=== PATIENT | male | born 1935 | race Hispanic/Latino ===

== ENCOUNTER 2018-06-26 11:02 | Emergency (ER) | payer SELFPAY ==
--- NOTE | 2018-06-26 12:35 | RAD REPORT ---
EXAM DESCRIPTION: RAD - Hand Right 3 View - 06/26/2018 12:16 pm CLINICAL HISTORY: Right hand pain FINDINGS: No fracture or dislocation is seen. Lateral subluxation of first distal phalanx. 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 Mild osteoarthritis involves DIP and PIP joints. Sub chondral cyst is present in the base of the first metacarpal with mild osteoarthritis The bones are osteoporotic
--- NOTE | 2018-06-26 12:49 | RAD REPORT ---
EXAM DESCRIPTION: US - UPPER EXTREMITY VENOUS UNILATE - 06/26/2018 12:38 pm CLINICAL HISTORY: Right arm swelling and pain COMPARISON: None FINDINGS: The right internal jugular, right subclavian, right cephalic, right axillary, right brach ial, right basilic, right ulnar and right radial veins are generally compressible and demonstrate au gmentation. Doppler demonstrates good flow. IMPRESSION: No evidence of thrombus within the veins of the right upper extremity
[2018-06-26 13:20] LABS: Absolute Lymphocytes (CBC) 1.7 K/uL (0.7-4.9); Absolute Monocytes 0.9 K/uL (0.1-1.3); Absolute Neutrophil 5.2 K/uL (1.8-8.0); Basophils % 0.8 % (0-1.3); Eosinophils % 3.4 % (0-4.4); Hematocrit 43.9 % (39.6-49.0); Lymphocytes % 20.7 % (15.3-44.8); MPV 8.1 fL (7.6-11.3); Monocytes % 10.7 % (3.3-12.3); RBC Red Blood Cell Count 4.96 M/uL (4.33-5.43)
[2018-06-26 13:24] LABS: ALT/SGPT 23 U/L (12-78); AST/SGOT 19 U/L (15-37); Albumin 3.7 g/dL (3.4-5.0); Alkaline Phosphatase 84 U/L (45-117); BUN Blood Urea Nitrogen 13 mg/dL (7-18); Bicarbonate 30 mmol/L (21-32); Bilirubin Total 0.6 mg/dL (0.2-1.0); Glucose Level 91 mg/dL (74-106); Protein, Total 7.1 g/dL (6.4-8.2); Sodium Level 136 mmol/L (136-145)
--- NOTE | 2018-06-26 13:57 | EDPHYS ---
Physician Documentation [facility] Name: Rajesh Pascual Age: 83 yrs Sex: Male : 1935 Arrival Date: 06/26/2018 Time: 11:07 Bed 2 Private MD: ED Physician Oswaldo Cuello HPI: 06/26 12:05 This 83 yrs old Male presents to ER via Ambulatory with complaints of Hand pm1 Swelling. 12:05 The patient or guardian reports pain. The complaints affect the heel of right hand. pm1 Context: The problem was sustained at home. Onset: The symptoms/episode began/occurred 3 day(s) ago. Modifying factors: The symptoms are alleviated by massage yesterday from a masseuse . Associated signs and symptoms: Pertinent negatives: cyanosis distally, decreased sensation distally, fever, numbness distally, tingling distally. Severity of symptoms: in the emergency department the symptoms have improved. The patient has not experienced similar symptoms in the past. The patient has not recently seen a physician. Patient with right hand pain and dorsal aspect of right forearm onset three days ago. Patient went to a masseuse yesterday and it improved his pain and swelling to right forearm and right hand. No chest pain, fever or shortness of breath . Historical: - Allergies: 11:24 No Known Allergies; sv - Home Meds: 11:24 rosuvastatin 20 mg oral tab 1 tab nightly [Active]; sv - PMHx: 11:24 High Cholesterol; sv - PSHx: 11:24 Hernia repair; retinal; prostatectomy; sv - Immunization history:: Adult Immunizations up to date. - Social history:: Smoking status: Patient/guardian denies using tobacco. - Ebola Screening: : No symptoms or risks identified at this time. ROS: 13:00 Constitutional: Negative for fever, chills, and weight loss, Eyes: Negative for injury, pm1 pain, redness, and discharge, ENT: Negative for injury, pain, and discharge, Neck: Negative for injury, pain, and swelling, Cardiovascular: Negative for chest pain, palpitations, and edema, Respiratory: Negative for shortness of breath, cough, wheezing, and pleuritic chest pain, Abdomen/GI: Negative for abdominal pain, nausea, vomiting, diarrhea, and constipation, Back: Negative for injury and pain, : Negative for injury, bleeding, discharge, and swelling. 13:00 Skin: Negative for injury, rash, and discoloration, Neuro: Negative for headache, weakness, numbness, tingling, and seizure. 13:00 MS/extremity: Positive for pain, swelling, of the heel of right hand and dorsal aspect of right forearm. Exam: 13:00 Constitutional: This is a well developed, well nourished patient who is awake, alert, pm1 and in no acute distress. Head/Face: Normocephalic, atraumatic. Eyes: Pupils equal round and reactive to light, extra-ocular motions intact. Lids and lashes normal. Conjunctiva and sclera are non-icteric and not injected. Cornea within normal limits. Periorbital areas with no swelling, redness, or edema. ENT: Nares patent. No nasal discharge, no septal abnormalities noted. Tympanic membranes are normal and external auditory canals are clear. Oropharynx with no redness, swelling, or masses, exudates, or evidence of obstruction, uvula midline. Mucous membranes moist. Neck: Trachea midline, no thyromegaly or masses palpated, and no cervical lymphadenopathy. Supple, full range of motion without nuchal rigidity, or vertebral point tenderness. No Meningismus. Chest/axilla: Normal chest wall appearance and motion. Nontender with no deformity. No lesions are appreciated. Cardiovascular: Regular rate and rhythm with a normal S1 and S2. No gallops, murmurs, or rubs. Normal PMI, no JVD. No pulse deficits. Respiratory: Lungs have equal breath sounds bilaterally, clear to auscultation and percussion. No rales, rhonchi or wheezes noted. No increased work of breathing, no retractions or nasal flaring. Abdomen/GI: Soft, non-tender, with normal bowel sounds. No distension or tympany. No guarding or rebound. No evidence of tenderness throughout. Back: No spinal tenderness. No costovertebral tenderness. Full range of motion. Skin: Warm, dry with normal turgor. Normal color with no rashes, no lesions, and no evidence of cellulitis. 13:00 Musculoskeletal/extremity: Extremities: grossly normal except: noted in the lateral aspect of heel of right hand: trace swelling, ROM: intact in all extremities, Circulation is intact in all extremities. Sensation intact. 13:00 Neuro: Orientation: is normal, Motor: moves all fours, strength is normal, strength is 5/5 in all extremities. Vital Signs: 11:24 BP 134 / 59; Pulse 66; Resp 18; Temp 97.8; Pulse Ox 97% ; Weight 70 kg; Height 5 ft. 4 sv in. (162.56 cm); 13:00 BP 150 / 67; Pulse 64; Resp 16; Pulse Ox 99% on R/A; hb 14:00 BP 152 / 64; Pulse 64; Resp 16; Pulse Ox 100% on R/A; hb 11:24 Body Mass Index 26.49 (70.00 kg, 162.56 cm) sv MDM: 11:44 Patient medically screened. pm1 12:36 Data reviewed: vital signs. Data interpreted: Pulse oximetry: on room air is 97 %. pm1 Interpretation: normal. 13:54 Counseling: I had a detailed discussion with the patient and/or guardian regarding: the pm1 historical points, exam findings, and any diagnostic results supporting the discharge/admit diagnosis, lab results, radiology results, the need for outpatient follow up, to return to the emergency department if symptoms worsen or persist or if there are any questions or concerns that arise at home. 06/26 11:52 Order name: CBC with Diff; Complete Time: 13:53 pm1 06/26 11:52 Order name: CMP; Complete Time: 13:53 pm1 06/26 11:51 Order name: Hand Right 3 View XRAY; Complete Time: 12:36 pm1 06/26 11:54 Order name: UPPER EXTREMITY VENOUS UNILATE; Complete Time: 12:50 EDMS Administered Medications: 14:29 Drug: TORadol 15 mg Route: IVP; Site: right antecubital; hb 14:55 Follow up: Response: No adverse reaction; Pain is decreased hb Disposition: 06/27 07:24 Co-signature as Attending Physician, Oswaldo Cuello MD I agree with the assessment and wa plan of care. PA/[employer]ER [employer]APPER's history reviewed, patient interviewed, and examined. Disposition: 06/26/18 13:56 Discharged to Home. Impression: Osteoarthritis right hand. - Condition is Stable. - Discharge Instructions: Arthritis. - Prescriptions for Tramadol 50 mg Oral Tablet - take 1 tablet by ORAL route every 8 hours as needed; 12 tablet. - Medication Reconciliation Form, Thank You Letter, Antibiotic Education, Prescription Opioid Use form. - Follow up: Emergency Department; When: As needed; Reason: Worsening of condition. Follow up: Private Physician; When: 2 - 3 days; Reason: Recheck today's complaints, Continuance of care, Re-evaluation by your physician. - Problem is new. - Symptoms have improved. Signatures: Dispatcher [employer] [facility] Marisela Escobar RN RN Karie Boswell RN RN Samuel Camp NP P[employer]PER pm1 Delmis Padgett RN RN KhushbooOswaldo MD MD ct Corrections: (The following items were deleted from the chart) 06/26 11:54 11:52 Extremity Venous [email or web address] ordered. [facility] 14:57 13:56 06/26/2018 13:56 Discharged to Home. Impression: Osteoarthritis right hand. hb Condition is Stable. Forms are Medication Reconciliation Form, Thank You Letter, Antibiotic Education, Prescription Opioid Use. Follow up: Emergency Department; When: As needed; Reason: Worsening of condition. Follow up: Private Physician; When: 2 - 3 days; Reason: Recheck today's complaints, Continuance of care, Re-evaluation by your physician. Problem is new. Symptoms have improved. pm1
--- NOTE | 2018-06-26 13:57 | ER ---
Nurse's Notes [facility] Name: Rajesh Pascual Age: 83 yrs Sex: Male : 1935 Arrival Date: 06/26/2018 Time: 11:07 Bed 2 Private MD: Diagnosis: Osteoarthritis right hand Presentation: 06/26 11:22 Presenting complaint: Child states: right thumb swelling started 4 days ago and then sv the swelling has increased to the right hand and up the arm. c/o right neck pain. Denies fever/chills. Transition of care: patient was not received from another setting of care. Onset of symptoms was June 22, 2018. Care prior to arrival: None. 11:22 Method Of Arrival: Ambulatory sv 11:22 Acuity: TENA 3 sv 11:30 Risk Assessment: Do you want to hurt yourself or someone else? Patient reports no ph desire to harm self or others. Initial Sepsis Screen: Does the patient meet any 2 criteria? No. Patient's initial sepsis screen is negative. Does the patient have a suspected source of infection? No. Patient's initial sepsis screen is negative. Triage Assessment: 11:22 General: Appears in no apparent distress. uncomfortable, well developed, Behavior is sv calm, cooperative, appropriate for age. Pain: Complains of pain in right arm, right posterior aspect of neck, right lateral aspect of neck and right anterior aspect of neck. Neuro: Level of Consciousness is awake, alert, obeys commands, Oriented to person, place, time, situation, Gait is steady, with his cane. Respiratory: Respiratory effort is even, unlabored, Respiratory pattern is regular, symmetrical. Musculoskeletal: Swelling present in right hand. Historical: - Allergies: 11:24 No Known Allergies; sv - Home Meds: 11:24 rosuvastatin 20 mg oral tab 1 tab nightly [Active]; sv - PMHx: 11:24 High Cholesterol; sv - PSHx: 11:24 Hernia repair; retinal; prostatectomy; sv - Immunization history:: Adult Immunizations up to date. - Social history:: Smoking status: Patient/guardian denies using tobacco. - Ebola Screening: : No symptoms or risks identified at this time. Screenin:10 Abuse screen: Denies threats or abuse. Denies injuries from another. Nutritional hb screening: No deficits noted. Tuberculosis screening: No symptoms or risk factors identified. Fall Risk None identified. Assessment: 11:30 General: Appears in no apparent distress. Behavior is calm, cooperative. Pain: Pain hb currently is 5 out of 10 on a pain scale. Neuro: Level of Consciousness is awake, alert, obeys commands, Oriented to person, place, time, situation. Cardiovascular: Capillary refill < 3 seconds Patient's skin is warm and dry. Respiratory: Airway is patent Respiratory effort is even, unlabored, Respiratory pattern is regular, symmetrical, Breath sounds are clear bilaterally. GI: No signs and/or symptoms were reported involving the gastrointestinal system. : No signs and/or symptoms were reported regarding the genitourinary system. EENT: No signs and/or symptoms were reported regarding the EENT system. Derm: Skin is intact, is healthy with good turgor. Musculoskeletal: right hand swelling. 12:30 Reassessment: Patient appears in no apparent distress at this time. No changes from hb previously documented assessment. Patient and/or family updated on plan of care and expected duration. Pain level reassessed. Patient is alert, oriented x 3, equal unlabored respirations, skin warm/dry/pink. 13:30 Reassessment: Patient appears in no apparent distress at this time. No changes from hb previously documented assessment. Patient and/or family updated on plan of care and expected duration. Pain level reassessed. Patient is alert, oriented x 3, equal unlabored respirations, skin warm/dry/pink. 14:30 Reassessment: Patient appears in no apparent distress at this time. No changes from hb previously documented assessment. Patient and/or family updated on plan of care and expected duration. Pain level reassessed. Patient is alert, oriented x 3, equal unlabored respirations, skin warm/dry/pink. Vital Signs: 11:24 BP 134 / 59; Pulse 66; Resp 18; Temp 97.8; Pulse Ox 97% ; Weight 70 kg; Height 5 ft. 4 sv in. (162.56 cm); 13:00 BP 150 / 67; Pulse 64; Resp 16; Pulse Ox 99% on R/A; hb 14:00 BP 152 / 64; Pulse 64; Resp 16; Pulse Ox 100% on R/A; hb 11:24 Body Mass Index 26.49 (70.00 kg, 162.56 cm) sv ED Course: 11:07 Patient arrived in ED. tw3 11:23 Triage completed. sv 11:25 Arm band placed on. sv 11:44 Samuel Camp NP is PHCP. pm1 11:44 Oswaldo Cuello MD is Attending Physician. pm1 12:14 X-ray completed. Portable x-ray completed in exam room. Patient tolerated procedure mh1 well. 12:17 Hand Right 3 View XRAY In Process Unspecified. EDMS 12:37 UPPER EXTREMITY VENOUS UNILATE In Process Unspecified. EDMS 12:37 Karie Boswell, RN is Primary Nurse. ph 12:54 Missed attempt(s): 20 gauge in right forearm. Bleeding controlled, band aid applied, pc1 catheter tip intact. 12:54 Inserted saline lock: 22 gauge in right antecubital area, using aseptic technique. pc1 13:00 Patient has correct armband on for positive identification. Bed in low position. Call hb light in reach. Side rails up X 1. 14:56 No provider procedures requiring assistance completed. IV discontinued, intact, hb bleeding controlled, No redness/swelling at site. Pressure dressing applied. Administered Medications: 14:29 Drug: TORadol 15 mg Route: IVP; Site: right antecubital; hb 14:55 Follow up: Response: No adverse reaction; Pain is decreased hb Outcome: 13:56 Discharge ordered by . pm1 14:56 Discharged to home ambulatory, with family. hb 14:56 Condition: stable 14:56 Discharge instructions given to patient, family, Instructed on discharge instructions, follow up and referral plans. medication usage, Demonstrated understanding of instructions, follow-up care, medications, Prescriptions given X 1. 14:57 Patient left the ED. hb Signatures: Dispatcher [employer] [facility] Marisela Escobar RN RN sv Harvey, Martha 1 Karie Boswell RN RN Samuel Camp, CAMPBELL [employer]ASON pm1 Delmis Padgett RN RN Di Chapin tw3 Samuel Carlson pc1
[2018-06-26] MEDS ORDERED: KETOROLAC 30 MG/ML INJ ONE (14:38)
== END 2018-06-26 14:57 | disposition home or self-care (01) ==
LOC: ER 11:02
DX: M19.041 Primary osteoarthritis, right hand (principal); E78.00 Pure hypercholesterolemia, unspecified
CPT/HCPCS: 36415; 80053; 85025; 93971; 96374; 99284

== ENCOUNTER 2018-07-02 11:52 | Emergency (ER) | payer SELFPAY ==
[2018-07-02] MEDS ORDERED: POTASSIUM CL SA 10 MEQ TAB PO ONE (12:19)
--- NOTE | 2018-07-02 12:58 | RAD REPORT ---
EXAM DESCRIPTION: RAD - Hand Right 3 View - 07/02/2018 12:49 pm CLINICAL HISTORY: Right hand pain FINDINGS: No fracture is seen. Lateral subluxation of first distal phalanx. Moderate osteoarthritis involves first IP joint consisti ng of osteophytes and joint space narrowing. Mild osteoarthritis involves the DIP and PIP joints. Subchondral cyst is present the base of the first metacarpal. Bones are osteoporotic
[2018-07-02] MEDS ORDERED: LIDOCAINE 1% MPF 30 ML VIAL ONE (13:12)
--- NOTE | 2018-07-02 14:10 | EDPHYS ---
Physician Documentation [facility] Name: Rajesh Pascual Age: 83 yrs Sex: Male : 1935 Arrival Date: 07/02/2018 Time: 11:56 Bed 26 Private MD: ED Physician Tariq Samson HPI: 07/02 14:13 This 83 yrs old Male presents to ER via Ambulatory with complaints of Thumb kb Injury. 14:13 The patient or guardian reports deformity, injury, pain. The complaints affect the kb right thumb. Context: The problem was sustained at home, resulted from an unknown cause. Onset: The symptoms/episode began/occurred 2 week(s) ago. Modifying factors: The symptoms are alleviated by nothing, the symptoms are aggravated by movement. Associated signs and symptoms: The patient has no apparent associated signs or symptoms. Severity of symptoms: At their worst the symptoms were moderate, in the emergency department the symptoms are unchanged. The patient has not experienced similar symptoms in the past. The patient has not recently seen a physician. Daughter states pt has been complaining of pain to right thumb since 06/16/18. . Historical: - Allergies: 12:03 No Known Allergies; tw2 - Home Meds: 12:03 rosuvastatin 20 mg Oral tab 1 tab nightly [Active]; tw2 - PMHx: 12:03 High Cholesterol; tw2 - PSHx: 12:03 Hernia repair; retinal; prostatectomy; tw2 - Immunization history:: Adult Immunizations. - Social history:: Smoking status: . - Ebola Screening: : Patient denies travel to an Ebola-affected area in the 21 days before illness onset. ROS: 14:16 Constitutional: Negative for fever, chills, and weight loss, Cardiovascular: Negative kb for chest pain, palpitations, and edema, Respiratory: Negative for shortness of breath, cough, wheezing, and pleuritic chest pain, Abdomen/GI: Negative for abdominal pain, nausea, vomiting, diarrhea, and constipation, Skin: Negative for injury, rash, and discoloration, Neuro: Negative for headache, weakness, numbness, tingling, and seizure. 14:16 MS/extremity: Positive for decreased range of motion, deformity, pain, of the right thumb. Exam: 14:14 Constitutional: This is a well developed, well nourished patient who is awake, alert, kb and in no acute distress. Head/Face: Normocephalic, atraumatic. Chest/axilla: Normal chest wall appearance and motion. Nontender with no deformity. No lesions are appreciated. Cardiovascular: Regular rate and rhythm with a normal S1 and S2. No gallops, murmurs, or rubs. Normal PMI, no JVD. No pulse deficits. Respiratory: Lungs have equal breath sounds bilaterally, clear to auscultation and percussion. No rales, rhonchi or wheezes noted. No increased work of breathing, no retractions or nasal flaring. Abdomen/GI: Soft, non-tender, with normal bowel sounds. No distension or tympany. No guarding or rebound. No evidence of tenderness throughout. Skin: Warm, dry with normal turgor. Normal color with no rashes, no lesions, and no evidence of cellulitis. Neuro: Awake and alert, GCS 15, oriented to person, place, time, and situation. Cranial nerves II-XII grossly intact. Motor strength 5/5 in all extremities. Sensory grossly intact. Cerebellar exam normal. Normal gait. 14:14 Musculoskeletal/extremity: Extremities: grossly normal except: noted in the right thumb: deformity, pain, ROM: limited active range of motion due to pain, Circulation is intact in all extremities. Vital Signs: 12:02 BP 133 / 70; Pulse 65; Resp 17; Temp 98.4(TE); Pulse Ox 96% on R/A; Weight 72.57 kg tw2 (R); Pain 6/10; Procedures: 14:15 Reduction: of the right thumb, using traction, Immobilized with finger splint, Patient kb tolerated well. does not stay reduced. finger splint applied . Nerve block: (digital) of Right first web space Medication: Lidocaine 1% with epinephrine, Marcaine 0.5%, Amount: 5 mls were injected, Effect: the patient has resolution of the pain, Set up for procedure. Performed by Peyton PAGE Patient tolerated well. MDM: 12:04 Patient medically screened. kb 14:13 Data reviewed: vital signs, nurses notes. Data interpreted: Pulse oximetry: on room air kb is 96 %. Interpretation: normal. Counseling: I had a detailed discussion with the patient and/or guardian regarding: the historical points, exam findings, and any diagnostic results supporting the discharge/admit diagnosis, radiology results, the need for outpatient follow up, a orthopedic surgeon, to return to the emergency department if symptoms worsen or persist or if there are any questions or concerns that arise at home. 07/02 12:19 Order name: Hand Right 3 View XRAY; Complete Time: 13:01 kb 07/02 14:17 Order name: Finger Splint; Complete Time: 14:23 kb Administered Medications: 14:00 Drug: Lidocaine (1 %) 5 mg {Note: administered by Peyton Garg NP.} Route: ss Infiltration; 14:00 Drug: Marcaine (0.5 %) 1 vials {Note: administered by Peyton Hoover RN.} Volume: 10 ml; ss Route: Infiltration; Disposition: 15:38 Co-signature as Attending Physician, Tariq Samson MD I agree with the assessment and victorino plan of care. Disposition: 07/02/18 14:09 Discharged to Home. Impression: Unspecified subluxation of right thumb. - Condition is Stable. - Discharge Instructions: Finger or Thumb Dislocation, [id number]. - Medication Reconciliation Form, Thank You Letter, Antibiotic Education, Prescription Opioid Use form. - Follow up: Emergency Department; When: As needed; Reason: Worsening of condition. Follow up: Private Physician; When: 2 - 3 days; Reason: Recheck today's complaints, Continuance of care, Re-evaluation by your physician. Signatures: Dispatcher [employer] [facility] Peyton Garg, BINDING NICKER-C BINDING NICKER-Ckb Tariq Samson MD MD cha Smirch, Shelby, RN RN Hannah Gamez RN RN tw2 Corrections: (The following items were deleted from the chart) 14:26 14:09 07/02/2018 14:09 Discharged to Home. Impression: Unspecified subluxation of right ss thumb. Condition is Stable. Forms are Medication Reconciliation Form, Thank You Letter, Antibiotic Education, Prescription Opioid Use. Follow up: Emergency Department; When: As needed; Reason: Worsening of condition. Follow up: Private Physician; When: 2 - 3 days; Reason: Recheck today's complaints, Continuance of care, Re-evaluation by your physician. kb
--- NOTE | 2018-07-02 14:10 | ER ---
Nurse's Notes [facility] Name: Rajesh Pascual Age: 83 yrs Sex: Male : 1935 Arrival Date: 07/02/2018 Time: 11:56 Bed 26 Private MD: Diagnosis: Unspecified subluxation of right thumb Presentation: 07/02 12:01 Presenting complaint: Child states: he is having a lot of pain in his RIGHT first tw2 finger, is started June 17. Transition of care: patient was not received from another setting of care. Onset of symptoms was July 02, 2018. Risk Assessment: Do you want to hurt yourself or someone else? Patient reports no desire to harm self or others. Initial Sepsis Screen: Does the patient meet any 2 criteria? No. Patient's initial sepsis screen is negative. Does the patient have a suspected source of infection? No. Patient's initial sepsis screen is negative. Care prior to arrival: None. 12:01 Method Of Arrival: Ambulatory tw2 12:01 Acuity: TENA 4 tw2 Triage Assessment: 12:02 General: Appears in no apparent distress. well groomed, Behavior is calm, cooperative, tw2 appropriate for age. Pain: Complains of pain in dorsal aspect of distal phalanx of right index finger, dorsal aspect of middle phalanx of right index finger and dorsal aspect of proximal phalanx of right index finger. Musculoskeletal: Circulation, motion, and sensation intact. Range of motion: intact in all extremities. Injury Description: pt denies injury to the finger. Historical: - Allergies: 12:03 No Known Allergies; tw2 - Home Meds: 12:03 rosuvastatin 20 mg Oral tab 1 tab nightly [Active]; tw2 - PMHx: 12:03 High Cholesterol; tw2 - PSHx: 12:03 Hernia repair; retinal; prostatectomy; tw2 - Immunization history:: Adult Immunizations. - Social history:: Smoking status: . - Ebola Screening: : Patient denies travel to an Ebola-affected area in the 21 days before illness onset. Screenin:30 Abuse screen: Denies threats or abuse. Denies injuries from another. Nutritional aj1 screening: No deficits noted. Tuberculosis screening: No symptoms or risk factors identified. Assessment: 12:30 General: Appears in no apparent distress. uncomfortable, Behavior is calm, cooperative, aj1 appropriate for age. Pain: Complains of pain in dorsal aspect of proximal phalanx of right index finger and dorsal aspect of middle phalanx of right index finger and dorsal aspect of distal phalanx of right index finger. Neuro: Level of Consciousness is awake, alert, obeys commands, Oriented to person, place, time, situation. Cardiovascular: Patient's skin is warm and dry. Respiratory: Airway is patent Respiratory effort is even, unlabored, Respiratory pattern is regular, symmetrical. GI: No signs and/or symptoms were reported involving the gastrointestinal system. : No signs and/or symptoms were reported regarding the genitourinary system. EENT: No signs and/or symptoms were reported regarding the EENT system. Derm: No signs and/or symptoms reported regarding the dermatologic system. Skin is pink, warm \T\ dry. normal. Musculoskeletal: Range of motion: limited in dorsal aspect of proximal phalanx of right index finger and dorsal aspect of middle phalanx of right index finger and dorsal aspect of distal phalanx of right index finger. Vital Signs: 12:02 BP 133 / 70; Pulse 65; Resp 17; Temp 98.4(TE); Pulse Ox 96% on R/A; Weight 72.57 kg tw2 (R); Pain 6/10; ED Course: 11:56 Patient arrived in ED. mr 12:02 Triage completed. tw2 12:03 Arm band placed on. tw2 12:04 Peyton Garg FNP-C [facility]. kb 12:04 Tariq Samson MD is Attending Physician. kb 12:27 Yarely Keen RN is Primary Nurse. aj1 12:30 Patient has correct armband on for positive identification. Bed in low position. Call aj1 light in reach. Side rails up X 1. Adult w/ patient. 12:30 No provider procedures requiring assistance completed. aj1 12:52 Hand Right 3 View XRAY In Process Unspecified. EDMS 14:24 Patient did not have IV access during this emergency room visit. ss Administered Medications: 14:00 Drug: Lidocaine (1 %) 5 mg {Note: administered by Peyton Garg NP.} Route: ss Infiltration; 14:00 Drug: Marcaine (0.5 %) 1 vials {Note: administered by Peyton Hoover RN.} Volume: 10 ml; ss Route: Infiltration; Outcome: 14:09 Discharge ordered by MD. maldonado 14:24 Discharged to home ambulatory, with family. ss 14:24 Condition: good 14:24 Discharge instructions given to patient, family, Instructed on discharge instructions, follow up and referral plans. Demonstrated understanding of instructions, follow-up care. 14:26 Patient left the ED. ss Signatures: Dispatcher [employer] EDDE Peyton Garg, MEDICAL PROGRAM SPECIALIST-C MEDICAL PROGRAM SPECIALIST-CkYarely Leach RN RN aj1 Ethel Corona Shelby, RN RN ss Hannah Gamez RN RN tw2 Corrections: (The following items were deleted from the chart) 12:31 12:30 Musculoskeletal: No signs and/or symptoms reported regarding the musculoskeletal aj1 system. Circulation, motion, and sensation intact. aj1
== END 2018-07-02 14:26 | disposition home or self-care (01) ==
LOC: ER 11:52
PROC: 0RSWXZZ Reposition Right Finger Phalangeal Joint, External Approach (ICD-10-PCS; principal; 2018-07-02)
DX: S63.101A Unspecified subluxation of right thumb, initial encounter (principal); E78.00 Pure hypercholesterolemia, unspecified; X58.XXXA Exposure to other specified factors, initial encounter; Y93.9 Activity, unspecified; Y92.009 Unspecified place in unspecified non-institutional (private) residence as the place of occurrence of the external cause
CPT/HCPCS: 64450; 99283